=== PATIENT | male | born 1970 | race Hispanic/Latino ===

== ENCOUNTER → 2021-04-03 13:59 | Outpatient (CLI) | payer OTHER, SELFPAY ==
[2021-04-03 15:23] LABS: COVID19 -Nasal RAPID Negative (Negative)
== END ==
PROVIDERS: Visit Provider Surgery
DX: Z01.812 Encounter for preprocedural laboratory examination (principal); Z20.822 Contact with and (suspected) exposure to COVID-19
CPT/HCPCS: 87635; C9803

== ENCOUNTER 2021-04-05 07:48 | Day surgery (SDC) | payer OTHER, SELFPAY ==
[2021-04-05] VITALS (7 sets, daily range): BP systolic 105–119; BP diastolic 76–83; PULSE 63–71; RESP 10–16; TEMP 36.1–36.7; O2SAT 93–98; BMI 27.8
--- NOTE | 2021-04-05 | PATH_ITS ---
[facility] Accession Number: [id number] No. of containers..01 Tissue . 01 Material submitted: . colon - SIGMOID POLYP . 02 Diagnosis: Sigmoid Colon, Polyp, Biopsy: Hyperplastic polyp. MRV 04/09/2021 1123 Local . 02 Electronically signed: . Meredith Joshi MD, Pathologist NPI- [id number] . 01 Gross description: . SIGMOID POLYP: Received in formalin is 1 fragment(s) of osborne, soft tissue measuring 0.3 x 0.2 x 0.2 cm submitted entirely in 1 cassette(s) /TRC 04/08/2021 0845 Local . 02 Pathologist provided ICD-10: K63.5 . 02 CPT . 352516 Specimen Comment: A courtesy copy of this report has been sent to [facility] Pathology Performed at: 01 [facility] Cytology [address], [place], [place] [id number] MD Yves Sethi MD Phone: [phone] Performed at: [address] [facility] [address] [place], [place] [id number] MD Meredith Joshi MD Phone: [phone]
[2021-04-05] MEDS: LACTATED RINGERS 1,000 ML 84 ML IV (08:15)
--- NOTE | 2021-04-05 08:38 | P.HP_ITS ---
History of Present Illness History of Present Illness Chief complaint: [facility] [place] Narrative: Mina is a 50-year-old man here for colonoscopy. His dad had colon cancer around age 60. He has never had a colonoscopy before. Patient History Medical History (Updated 04/05/21 @ 08:39 by Kamari Ovalle MD) CPAP (continuous positive airway pressure) dependence Hypercholesterolemia Sleep apnea Family & Social History Social History: household members spouse Tobacco & Substance use: Smoking Status Never smoker alcohol intake never Substance Use Type does not use Meds Home Medications and Allergies Home Medications Medication Instructions Recorded Confirmed Type Tylenol 650 mg PO DAILY 04/05/21 04/05/21 History atorvastatin 40 mg tablet 40 mg PO DAILY 04/05/21 04/05/21 History montelukast 10 mg tablet 10 mg PO DAILY 04/05/21 04/05/21 History Allergies Allergy/AdvReac Type Severity Reaction Status Date / Time No Known Drug Allergies Allergy Verified 04/05/21 08:04 Exam Vital Signs (past 8 hours): - 04/05/21 08:08 Temperature 98.1 F Pulse Rate 71 Respiratory Rate 16 Blood Pressure 114/76 Pulse Oximetry 96 Oxygen Delivery Method Room Air Const General: healthy appearing Resp Effort & Inspection: normal respiratory effort GI Palpation: soft Skin General: no rashes or lesions noted Neuro General: patient alert and patient awake Psych Affect: normal affect Assessment & Plan Assessment and plan (1) Colon cancer screening: Status: Acute Plan Benefits of screening colonoscopy. He would like to proceed. The procedure is indicated because if he has a colon cancer the delay in diagnosis would lead to a worse outcome or . COVID-19 COVID-19 status: Negative Result date/Date tested (Pos, Neg/Pending): 04/03/21 Time Spent With Patient Critical Care time: I spent a total of [] minutes of critical care time on this patient's care today; this time is exclusive of procedural time.
[2021-04-05] MEDS: fentaNYL 250 MCG/5 ML INJ IV (09:01)
[2021-04-05] MEDS: MIDAZOLAM 5 MG/5 ML VIAL IV (09:03)
--- NOTE | 2021-04-05 09:14 | PM.OP.COLON ---
Operative Date/Time/Diagnoses Date of procedure: 04/05/21 Time of procedure: 09:14 Pre-op diagnosis: Family history of colon cancer Post-op diagnosis: same Procedure & Clinicians Study performed: Colonoscopy Same procedure as scheduled: Yes Indications: Family history of colon cancer Surgeon: Kamari Ovalle Procedure Notes SCOAP/Timeout: Yes Procedure in detail: Procedure: The patient was brought to the endoscopy suite, placed in left lateral decubitus position. The patient was connected to monitoring devices. A time-out was performed. Sedation was administered. Once the patient was adequately sedated, a digital rectal exam was performed and was normal. The scope was then inserted and advanced to the cecum where the appendiceal orifice was identified and photographed. The scope was then slowly withdrawn over greater than 6 minutes. Mucosa was thoroughly inspected. There was 1 small polyp in the sigmoid colon removed with Jumbo forceps. The rest of the colon was normal. The scope was retroflexed in the rectum. No abnormalities noted. The scope was straightened and removed. The patient was awakened and brought to recovery. Versed: 6 mg Fentanyl: 100 mcg EBL: 1 mL Findings: 1 small sigmoid colon polyp Scope withdrawal time: 10 Sedation minutes: 19 Post-procedure Recommendations: Will call with biopsy results Follow up: weeks Disposition: PACU
== END 2021-04-05 10:07 | disposition home or self-care (01) ==
LOC: ENDO 07:49
PROVIDERS: Referring Provider Surgery; Visit Provider Surgery
PROC: 0DJD8ZZ Inspection of Lower Intestinal Tract, Via Natural or Artificial Opening Endoscopic (ICD-10-PCS; CPT 45378; principal; 2021-04-05 08:45)
DX: Z12.11 Encounter for screening for malignant neoplasm of colon (principal); Z80.0 Family history of malignant neoplasm of digestive organs; G47.30 Sleep apnea, unspecified; E78.00 Pure hypercholesterolemia, unspecified; K63.5 Polyp of colon
CPT/HCPCS: 45380; 99152; J2250; J3010